=== PATIENT | male | born 1965 | race Caucasian/White ===

== ENCOUNTER 2023-03-14 20:28 | Inpatient (IN) | payer BC, SELFPAY ==
[2023-03-14 20:36] VITALS: BP 156/84; PULSE 74; RESP 18; TEMP 36.9; O2SAT 95; BMI 36.5
--- NOTE | 2023-03-14 20:36 | XRR_ITS ---
PROCEDURE INFORMATION: Exam: XR Chest Exam date and time: 03/14/2023 8:43 PM Age: 57 years old Clinical indication: Pain; Chest pressure; Additional info: Chest pain TECHNIQUE: Imaging protocol: Radiologic exam of the chest. Views: 1 view. COMPARISON: No relevant prior studies available. FINDINGS: Tubes, catheters and devices: Overlying monitor leads. Lungs: Mild left basilar atelectasis versus scarring. No consolidation. Pleural spaces: Unremarkable. No pleural effusion. No pneumothorax. Heart/Mediastinum: Unremarkable. No cardiomegaly. Bones/joints: Visualized osseous structures show no acute abnormality. XR/XR chest 1V portable [id number] IMPRESSION: 1. Mild left basilar atelectasis versus scarring. 2. No acute findings.
--- NOTE | 2023-03-14 20:37 | ECG_ITS ---
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 Measurements Intervals [place] Rate: 69 P: 60 AK: 151 QRS: 9 QRSD: 95 T: 68 QT: 390 QTc: 419 Interpretive Statements SINUS RHYTHM NONSPECIFIC T-WAVE ABNORMALITY No previous ECG available for comparison Electronically Signed On 03-17-2023 8:34:55 CDT by Sampson Pedroza M.D. [email or web address].Official Limited Virtualpascagoula hospitalWireless Generationacmc [id number] f
[2023-03-14 20:57] VITALS: BP 173/86; PULSE 85; RESP 22; O2SAT 95
[2023-03-14 21:00] LABS: Basophils # 0.1 10^3/uL (0.0-0.1); Basophils % 0.4 %; Eosinophils # 0.1 10^3/uL (0.0-0.8); Hematocrit 50.6 % (42.0-52.0); Hemoglobin 16.6 g/dL (11.7-16.6); Lymphocytes # 2.4 10^3/uL (0.8-4.8); Lymphocytes % 17.7 %; Mean Corpuscular HGB Conc 32.8 g/dL (30.0-36.0); Mean Corpuscular Hemoglobin 28.1 pg (28.0-34.0); Mean Corpuscular Volume 85.8 fl (80-94); Monocytes # 0.9 10^3/uL (0.2-0.9); Monocytes % 6.5 %; Neutrophils # 9.89 10^3/uL (1.8-7.7); Neutrophils % 73.8 %; Nucleated Red Blood Cells % 0 %; Platelet Count 345 10^3/cmm (130-400); Red Cell Distribution Width 13.5 % (12.1-15.1); White Blood Count 13.4 10^3/uL (4.0-10.0)
[2023-03-14 21:12] VITALS: BP 144/98; PULSE 70; RESP 17; O2SAT 97
[2023-03-14 21:16] LABS: Lipase 20 U/L (13-60)
[2023-03-14 21:17] LABS: Troponin(5th) Baseline 8 ng/L (0-15)
[2023-03-14 21:19] LABS: Alanine Aminotransferase 89 U/L (0-41); Albumin Level 3.9 g/dL (3.5-5.2); Alkaline Phosphatase 113 U/L (40-130); Anion Gap 12.7 (5-19); Aspartate Amino Transferase 91 U/L (0-40); Blood Urea Nitrogen 7 mg/dL (6-20); Calcium 9.8 mg/dL (8.5-10.5); Carbon Dioxide 28 mmol/L (22-29); Chloride 103 mmol/L (98-107); Globulin 2.1 g/dL (1.3-4.6); Glucose 137 mg/dL (65-115); Osmolality Calculated 290 mOsm/kg (285-295); Potassium 3.7 mmol/L (3.5-5.1); Sodium 140 mmol/L (136-145)
--- NOTE | 2023-03-14 21:34 | CTR_ITS ---
PROCEDURE INFORMATION: Exam: CT Abdomen And Pelvis With Contrast Exam date and time: 03/14/2023 9:45 PM Age: 57 years old Clinical indication: Abdominal pain; Patient HX: Epigastric pain with nausea. Lft elevated. 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 ; Additional info: Abd pain, bloating, elevated lfts TECHNIQUE: Imaging protocol: Computed tomography of the abdomen and pelvis with contrast. Radiation optimization: All CT scans at this facility use at least one of these dose optimization techniques: automated exposure control; mA and/or kV adjustment per patient size (includes targeted exams where dose is matched to clinical indication); or iterative reconstruction. Contrast material: OMNI 350; Contrast volume: 100 ml; Contrast route: INTRAVENOUS (IV); REPORTING DATA: Count of CT and Cardiac NM exams in prior 12 months: This patient has received 0 known CTs and 0 known cardiac nuclear medicine studies in the 12 months prior to the current study. COMPARISON: CR (CHEST, ) 03/14/2023 8:43 PM RADIATION DOSE METRICS: Total DLP (mGy-cm): 981.53 FINDINGS: Lungs: No significant infiltrate or effusion within the lung bases with small adhesion left lung base. Liver: Suggestion of mild fatty liver. No focal abnormality. Gallbladder and bile ducts: Gallbladder distention or hydrops with small calcification along the posterolateral wall region suggesting small gallstones or wall calcification. No biliary ductal dilatation. Pancreas: Normal. No ductal dilation. Spleen: Normal. No splenomegaly. Adrenal glands: Normal. No mass. Kidneys and ureters: Normal. No hydronephrosis. Stomach and bowel: Unremarkable. No obstruction. No mucosal thickening. Hyperdensities within the dependent portion of the stomach attributed to antacid ingestion along with a small portion in the proximal duodenum. Mild gastric prominence or distention. Appendix: No evidence of appendicitis. Intraperitoneal space: Unremarkable. No free air. No significant fluid collection. Vasculature: Mild atherosclerotic vascular disease without aneurysmal dilatation of the abdominal aorta. Lymph nodes: Unremarkable. No enlarged lymph nodes. Urinary bladder: Unremarkable as visualized. Reproductive: Mild prostate enlargement with several calcifications. This can be associated with chronic prostatitis. Bones/joints: Mild spondylotic change lumbar spine. Soft tissues: Mild left inguinal hernia of fat. CT/CT abdomen pelvis w con* [id number] IMPRESSION: 1. Suggestion of gallbladder distention or hydrops with small gallstones versus wall calcification about the posterolateral aspect, likely small gallstones. Correlation with gallbladder ultrasound could be performed. No biliary ductal dilatation. 2. Fatty liver. 3. Mild gastric prominence or distention and consider gastric stasis. Hyperdensities of antacid medication noted within the stomach and proximal duodenum. 4. Mild prostate enlargement with several calcifications. This can be associated with chronic prostatitis. 5. Mild atherosclerotic vascular calcification without aneurysm of the abdominal aorta.
[2023-03-14] MEDS: iohexol 350 mg/mL 500 mL Btl (per mL) IV (21:48)
--- NOTE | 2023-03-14 21:56 | W.ED.CHESTPA ---
HPI - Chest Pain General: Chief Complaint: Chest Pain Stated Complaint: CP Time Seen by Provider: 03/14/23 20:35 History of Present Illness: To the ER with complaints of abdominal pain radiating up into his chest. And bloating. EMS gave the patient nitro Zofran and aspirin with some relief. Patient states this started yesterday for several hours but then went away and then started back again today several hours earlier but has not went away. However he has had some relief with the medicines from EMS. Patient states the pain is more abdominal in nature that radiates up into his chest and he appears and feels bloated just like he is wanting to expect bloated. Review of Systems General: Reports: 10 or more systems reviewed and unremarkable except in HPI and below PFSH ED PFSH: Medical History (Updated 03/25/23 @ 11:54 by James oDyle DO) Acute cholecystitis Panhypopituitarism Surgical History (Updated 03/15/23 @ 10:28 by Jonathon Cruz MD) No pertinent past surgical history Family History (Updated 03/15/23 @ 10:28 by Jonathon Cruz MD) Other No pertinent family history Social History (Updated 03/15/23 @ 10:28 by Jonathon Cruz MD) Smoking and tobacco status: never smoked Alcohol intake: never Substance/Drug Use: never Physical Exam Const: COMMON NORMALS: no acute distress, average body habitus, patient oriented x3, no limitations, alert and well nourished HENMT: COMMON NORMALS: normocephalic, atraumatic, hearing grossly normal bilaterally, external ears normal, Normal external nose present and moist oral mucous membranes HEAD & SCALP: normocephalic and atraumatic NOSE: Normal external nose present EXTERNAL EAR: Yes external ears normal Eye: COMMON NORMALS: Equal, round and reactive pupils present, EOMs intact bilaterally, conjunctivae normal and no scleral icterus CONJUNCTIVA: Yes conjunctivae normal PUPIL: Yes Equal, round and reactive pupils present Neck/C-Spine: COMMON NORMALS: full ROM, no lymphadenopathy, supple, no meningeal signs, no JVD and Thyroid normal THYROID: Thyroid normal Chest: COMMONS NORMALS: normal inspection of the chest and normal palpation of entire chest wall Resp: COMMON NORMALS: normal respiratory effort, No retractions, No use of accessory muscles and clear to auscultation bilaterally AUSCULTATION: clear to auscultation bilaterally Cardio: COMMON NORMALS: no JVD, regular rate, regular rhythm, S1 normal heart sound present, S2 normal heart sound present, No gallops present (Cardio), No clicks present (Cardio), No murmurs present (Cardio) and No rub (Cardio) RATE: regular rate RHYTHM: regular rhythm HEART SOUNDS: S1 normal heart sound present and S2 normal heart sound present GI: COMMON NORMALS: Soft to palpation, No hepatosplenomegaly present and no masses; negative for Normal to inspection, nondistended, normoactive bowel sounds present (Mildly distended abdomen with normal active bowel sounds.) and negative for non-tender (Mildly tender to touch worse on the left side than right.) PALPATION: Yes Soft to palpation and Yes No hepatosplenomegaly present : COMMON NORMALS: Yes no CVA tenderness BLADDER/KIDNEY EXAM: Yes no CVA tenderness Back/Pelvis: COMMON NORMALS: no CVA tenderness Neuro: COMMON NORMALS: patient oriented x3 SENSORIUM/ORIENTATION: Yes alert MENINGEAL SIGNS: Yes no meningeal signs Course Vital Signs: Vital signs: Vital Signs Temperature 98.5 F 03/16/23 11:04 Pulse Rate 74 03/16/23 11:04 Respiratory Rate 18 03/16/23 11:04 Blood Pressure 125/73 03/16/23 11:04 Pulse Oximetry 96 03/16/23 11:04 Oxygen Delivery Me thod Room Air 03/16/23 07:55 MDM - Chest Pain Medical Decision Making Been having chest pain/abdominal pain for last 4 to give himself some antiacids. With no relief. Patient called 911 and EMS arrived they gave him nitro Zofran and aspirin with some relief. Physical exam was performed lab work and imaging was obtained which suggested cholecystitis. Patient will be mated and surgery consulted. Differential Diagnosis Unlikely acute massive pulmonary embolism, acute respiratory failure, acute myocardial infarction, cardiac arrest or sudden cardiac Medical Records I reviewed the patient's medical records. Lab Data I reviewed the patient's lab results. 03/16/23 02:02 03/16/23 02:02 Radiology Impressions Chest X-Ray 03/14/23 20:36 IMPRESSION: 1. Mild left basilar atelectasis versus scarring. 2. No acute findings. Abdomen/Pelvis CT 03/14/23 21:34 IMPRESSION: 1. Suggestion of gallbladder distention or hydrops with small gallstones versus wall calcification about the posterolateral aspect, likely small gallstones. Correlation with gallbladder ultrasound could be performed. No biliary ductal dilatation. 2. Fatty liver. 3. Mild gastric prominence or distention and consider gastric stasis. Hyperdensities of antacid medication noted within the stomach and proximal duodenum. 4. Mild prostate enlargement with several calcifications. This can be associated with chronic prostatitis. 5. Mild atherosclerotic vascular calcification without aneurysm of the abdominal aorta. Abdomen Ultrasound 03/14/23 22:07 IMPRESSION: 1. Multiple stones and sludge in the gallbladder. Findings suspicious for cholecystitis. 2. Pancreas not visualized due to overlying bowel gas. 3. Mild fatty infiltration of the liver. Laboratory Results WBC 13.4 10^3/uL (4.0-10.0) H 03/14/23 20:49 RBC 5.90 10^6/uL (4.1-5.3) H 03/14/23 20:49 Hgb 16.6 g/dL (11.7-16.6) 03/14/23 20:49 Hct 50.6 % (42.0-52.0) 03/14/23 20:49 MCV 85.8 fl (80-94) 03/14/23 20:49 MCH 28.1 pg (28.0-34.0) 03/14/23 20:49 MCHC 32.8 g/dL (30.0-36.0) 03/14/23 20:49 RDW 13.5 % (12.1-15.1) 03/14/23 20:49 Plt Count 345 10^3/cmm (130-400) 03/14/23 20:49 MPV 9.0 fL (7.4-10.4) 03/14/23 20:49 Neut % (Auto) 73.8 % 03/14/23 20:49 Lymph % (Auto) 17.7 % 03/14/23 20:49 [place] % (Auto) 6.5 % 03/14/23 20:49 Eos % (Auto) 1.0 % 03/14/23 20:49 Baso % (Auto) 0.4 % 03/14/23 20:49 Neut # (Auto) 9.89 10^3/uL (1.8-7.7) H 03/14/23 20:49 Lymph # (Auto) 2.4 10^3/uL (0.8-4.8) 03/14/23 20:49 [place] # (Auto) 0.9 10^3/uL (0.2-0.9) 03/14/23 20:49 Eos # (Auto) 0.1 10^3/uL (0.0-0.8) 03/14/23 20:49 Baso # (Auto) 0.1 10^3/uL (0.0-0.1) 03/14/23 20:49 Nucleated RBC % (auto) 0 % 03/14/23 20:49 Nucleated RBCs # 0.0 /100WBC 03/14/23 20:49 Sodium 140 mmol/L (136-145) 03/14/23 20:49 Potassium 3.7 mmol/L (3.5-5.1) 03/14/23 20:49 Chloride 103 mmol/L (98-107) 03/14/23 20:49 Carbon Dioxide 28 mmol/L (22-29) 03/14/23 20:49 Anion Gap 12.7 (5-19) 03/14/23 20:49 BUN 7 mg/dL (6-20) 03/14/23 20:49 Creatinine 0.8 mg/dL (0.7-1.2) 03/14/23 20:49 GFR Calculation 100.0 mL/min (90-130) 03/14/23 20:49 Glucose 137 mg/dL (65-115) H 03/14/23 20:49 Calculated Osmolality 290 mOsm/kg (285-295) 03/14/23 20:49 Calcium 9.8 mg/dL (8.5-10.5) 03/14/23 20:49 Magnesium 2.0 mg/dL (1.7-2.3) 03/14/23 20:49 Total Bilirubin 2.0 mg/dL (0.15-1.2) H 03/14/23 20:49 AST 91 U/L (0-40) H 03/14/23 20:49 ALT 89 U/L (0-41) H 03/14/23 20:49 Alkaline Phosphatase 113 U/L (40-130) 03/14/23 20:49 Troponin T Baseline 8 ng/L (0-15) 03/14/23 20:49 Troponin T 120 Minute 10.26 ng/L (0-15) 03/14/23 22:42 Delta Troponin T 2.26 ABS# (0-10) 03/14/23 22:42 Total Protein 6.0 g/dL (6.6-8.7) L 03/14/23 20:49 Albumin 3.9 g/dL (3.5-5.2) 03/14/23 20:49 Globulin 2.1 g/dL (1.3-4.6) 03/14/23 20:49 Lipase 20 U/L (13-60) 03/14/23 20:49 EKG Data EKG 1: I personally reviewed and interpreted this EKG as follows: EKG interpretation date: 03/14/23 EKG interpretation time: 20:33 Prior EKG tracings: not available for review Interpretation: EKG shows normal sinus rhythm, ventricular rate 69 bpm, [place] interval 151, QRS duration 95, QTc 409, nonspecific T wave abnormality EKG 2: I personally reviewed and interpreted this EKG as follows: EKG interpretation date: 03/14/23 EKG interpretation time: 22:41 Prior EKG tracings: available for review Interpretation: EKG showed ventricular rate 68 bpm, AZ interval 153, QRS duration 91, QTc 400, normal sinus rhythm no ST-T wave changes Discharge Plan Discharge Patient Disposition: Admitted As Inpatient Admit Provider: Ilir Raphael Clinical Impression: Acute cholecystitis Condition: Stable Discharge Diet: Low Fat Discharge Activity: Resume usual activity Coding Level of Care Code 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
--- NOTE | 2023-03-14 22:07 | USR_ITS ---
PROCEDURE INFORMATION: Exam: US Abdomen, Limited; Right Upper Quadrant Exam date and time: 03/14/2023 10:40 PM Age: 57 years old Clinical indication: Abdominal pain; Epigastric; Additional info: Abd pain, n/v, distension, abnormal gb on CT elevated lfts TECHNIQUE: Imaging protocol: Real time ultrasound of the abdomen with image documentation. Limited exam focused on the right upper quadrant. COMPARISON: CT abdomen pelvis w con* [id number] 03/14/2023 9:45 PM FINDINGS: Liver: Mildly increased echotexture in the liver, consistent with mild fatty infiltration. Gallbladder: Moderate gallbladder wall thickening. Multiple stones and sludge in the gallbladder. Small amount of pericholecystic fluid. Biliary ducts: Normal. No stones. No dilation. Pancreas: The pancreas was not visualized due to overlying bowel gas. Right kidney: The visualized right kidney is unremarkable. Portal venous: Hepatopetal flow in the portal vein. Intraperitoneal space: No ascites. US/US abdomen limited [id number] IMPRESSION: 1. Multiple stones and sludge in the gallbladder. Findings suspicious for cholecystitis. 2. Pancreas not visualized due to overlying bowel gas. 3. Mild fatty infiltration of the liver.
--- NOTE | 2023-03-14 22:37 | ECG_ITS ---
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 Measurements Intervals [place] Rate: 68 P: 57 TN: 153 QRS: 8 QRSD: 91 T: 62 QT: 383 QTc: 409 Interpretive Statements SINUS RHYTHM Compared to ECG 03/14/2023 20:33:46 T-wave abnormality no longer present Electronically Signed On 03-17-2023 8:38:26 CDT by Sampson Pedroza M.D. [id number]
[2023-03-14 22:39] VITALS: BP 133/76; PULSE 75; RESP 22; O2SAT 95
[2023-03-14 23:02] LABS: Troponin 5 2HR 10.26 ng/L (0-15)
[2023-03-14 23:05] LABS: Troponin 5 2HR Delta 2.26 ABS# (0-10)
[2023-03-15] VITALS (8 sets, daily range): BP systolic 117–139; BP diastolic 60–78; PULSE 55–70; RESP 14–17; TEMP 36.4–36.9; O2SAT 94–96
[2023-03-15] MEDS: piperacillin-tazobactam 4.5 GM in sodium chloride 0.9% (plus) 50 ML IV (00:47)
[2023-03-15] MEDS: lactated ringers 1,000 ML 100 ML IV ×2 (02:04→13:00)
[2023-03-15] MEDS: ketorolac 30 mg/mL INJ 15 MG IVP ×4 (02:04→19:51)
--- NOTE | 2023-03-15 02:57 | ECG_ITS ---
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 Measurements Intervals [place] Rate: 61 P: 71 TX: 158 QRS: -20 QRSD: 86 T: 7 QT: 422 QTc: 425 Interpretive Statements SINUS RHYTHM WITH SINUS ARRHYTHMIA MINIMAL VOLTAGE CRITERIA FOR LVH, CONSIDER NORMAL VARIANT [MEETS CRITERIA IN ONE OF: R(aVL), S(V1), R(V5), R(V5/V6)+S(V1)] Compared to ECG 03/14/2023 22:41:47 No significant changes Electronically Signed On 03-17-2023 8:38:21 CDT by Sampson Pedroza M.D. [id number]
[2023-03-15 03:30] LABS: Basophils % 0.4 %; Eosinophils # 0.1 10^3/uL (0.0-0.8); Eosinophils % 1.1 %; Hematocrit 46.6 % (42.0-52.0); Hemoglobin 15.1 g/dL (11.7-16.6); Lymphocytes # 1.7 10^3/uL (0.8-4.8); Lymphocytes % 16.4 %; Mean Corpuscular HGB Conc 32.4 g/dL (30.0-36.0); Mean Corpuscular Hemoglobin 28.4 pg (28.0-34.0); Mean Corpuscular Volume 87.6 fl (80-94); Mean Platelet Volume 9.5 fL (7.4-10.4); Monocytes # 0.9 10^3/uL (0.2-0.9); Monocytes % 8.3 %; Neutrophils # 7.69 10^3/uL (1.8-7.7); Neutrophils % 73.1 %; Nucleated Red Blood Cells % 0 %; Platelet Count 312 10^3/cmm (130-400); Red Blood Count 5.32 10^6/uL (4.1-5.3); Red Cell Distribution Width 13.8 % (12.1-15.1); White Blood Count 10.5 10^3/uL (4.0-10.0)
[2023-03-15 03:45] LABS: Alanine Aminotransferase 113 U/L (0-41); Albumin Level 3.6 g/dL (3.5-5.2); Alkaline Phosphatase 112 U/L (40-130); Anion Gap 12.3 (5-19); Aspartate Amino Transferase 108 U/L (0-40); Blood Urea Nitrogen 7 mg/dL (6-20); Calcium 9.2 mg/dL (8.5-10.5); Carbon Dioxide 31 mmol/L (22-29); Chloride 99 mmol/L (98-107); Globulin 1.9 g/dL (1.3-4.6); Glomerular Filtration Rate 77.3 mL/min (90-130); Glucose 122 mg/dL (65-115); Osmolality Calculated 285 mOsm/kg (285-295); Potassium 4.3 mmol/L (3.5-5.1); Sodium 138 mmol/L (136-145); Total Bilirubin 2.5 mg/dL (0.15-1.2); Total Protein 5.5 g/dL (6.6-8.7)
[2023-03-15 03:55] LABS: Troponin 5 6HR 7.78 ng/L (0-15)
[2023-03-15 04:08] LABS: Troponin 5 6HR Delta -0.22 ng/L (0-12)
--- NOTE | 2023-03-15 08:32 | P.CONIM_ITS ---
Providers/Reason For Consult Consulting Physician/Specialty*: General surgery Reason for Consult*: Acute cholecystitis Attending Physician: Ilir Raphael MD History of Present Illness History of Present Illness Nikolay Tomlinson is a 57 year old male who presented to an emergency department complaining of upper abdomen and chest pain. Cardiac work-up was negative. CAT scan was done showing evidence of acute cholecystitis, characterized with gallbladder wall thickening gallbladder distention and pericholecystic fluid. No evidence of biliary duct dilation bold on ultrasound or CAT scan. I was consulted for possible need for cholecystectomy. Review of Systems Narrative: 10 point review of systems was done and is negative otherwise noted in HPI General: No constitutional symptoms Cardiovascular: Mild chest pain Respiratory: No respiratory symptoms GI: Right upper quadrant pain Medications/Allergies Home Medications Medication Instructions Recorded Confirmed Last Taken Type desmopressin 0.2 mg tablet (DDAVP) See Rx Instructions .Route .COMPLEX 03/15/23 03/15/23 Unknown History hydrocortisone 10 mg tablet See Rx Instructions .Route .COMPLEX 03/15/23 03/15/23 Unknown History levothyroxine 137 mcg tablet 137 mcg PO DAILY 03/15/23 03/15/23 Unknown History rosuvastatin 40 mg tablet 40 mg PO DAILY 03/15/23 03/15/23 Unknown History testosterone cypionate 200 mg/mL See Rx Instructions .Route .COMPLEX 03/15/23 03/15/23 Unknown History intramuscular oil Allergies Allergy/AdvReac Type Severity Reaction Status Date / Time No Known Allergies Allergy Verified 03/14/23 20:42 Current Medications Generic Name Dose Route Start Last Admin Trade Name Freq PRN Reason Stop Dose Admin Lactated Ringer's 1,000 mls @ 100 mls/hr 03/15/23 01:28 03/15/23 02:04 Lactated Ringers IV 100 mls/hr .Q10H NICOLETTE Administration Ketorolac Tromethamine 15 mg 03/15/23 01:28 03/15/23 07:54 Ketorolac 30 Mg/Ml Inj IVP 03/20/23 01:27 15 mg Q6H NICOLETTE Administration Vitals/I&O/Wt Last Vital Signs Temp 98.2 F 03/15/23 08:00 Pulse 59 L 03/15/23 08:00 Resp 14 03/15/23 08:00 BP 120/78 03/15/23 08:00 Pulse Ox 96 03/15/23 08:00 O2 Del Method Room Air 03/15/23 04:00 03/14/23 03/15/23 03/15/23 22:59 06:59 14:59 Intake Total 50 / 50 Balance 50 / 50 Weight last 48 hrs Weight 240 lb Physical Exam Narrative: General : Patient is well developed , no acute distress, oriented x3. No jaundice noted Head : Normal cephalic, a-traumatic. Nose : Mucous membranes are without erythema. Lungs : Equal chest rise bilaterally, no use of accessory muscles, trachea is midline. CV : Rate and rhythm are normal. Abdomen : Abdomen is soft, mild tenderness to palpation in the right upper quadrant, no Gandara sign. Data 03/15/23 02:49 03/15/23 02:49 A&P Assessment and plan (1) Acute cholecystitis: (2) Elevated bilirubin: (3) Steroid dependence: Plan This is a 57-year-old male who presented to our emergency department with symptoms concerning for acute cholecystitis which was verified by imaging. Initial LFTs were notable for an elevated bilirubin to 2.0, in addition white count was elevated to 13.4. Patient was accepted to my service admitted to the hospital and placed n.p.o., on antibiotics, pain medication and a new set of labs was ordered for this morning. White count had trended down from 13.4-10.5. I have seen and uptrend of the total bilirubin from 2-2.5 in addition AST and ALT have trended up to 108 and 113. This may indicate a complement of possible biliary duct obstruction. After extensive discussion with the patient I Explained that at this point it would be important to try and his bilirubin before deciding of any surgical intervention if there is an uptrend of the bilirubin he will likely require additional imaging with MRCP or likely an ERCP which we do not offer at our institution. 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 Patient will likely require stress dose of the hormones in case surgery is needed, I am more inclined to proceed with nonoperative management at this point and have patient follow-up with his primary celebrity chef entrepreneur media personality for perioperative optimization before proceeding with laparoscopic cholecystectomy. Patient has been informed that if we going this route he will need interval cholecystectomy in about 6 weeks. Patient agrees with the plan. I have also talked to Dr. Cruz with our hospitalist department to assist with the management of his hormonal therapy while the patient is in-house. I plan to advance diet as tolerated continue all other care as stated above. Consult Attestations Medical Necessity Statement: Patient will likely stay 2 to 3 days in the hospital for nonoperative management of acute cholecystitis Coding Level of Care Code 07329 Diagnoses Acute cholecystitis K81.0 Elevated bilirubin R17 Steroid dependence F19.20
[2023-03-15] MEDS: enoxaparin 40 mg/0.4 mL Syringe SUBCUT (08:46)
[2023-03-15] MEDS: hydrocortisone 10 mg Tablet 20 MG PO (08:47)
[2023-03-15] MEDS: levothyroxine 137 mcg Tablet PO (08:48)
[2023-03-15] MEDS: atorvastatin 40 mg Tablet 80 MG PO (08:48)
[2023-03-15] MEDS: piperacillin-tazobactam 3.375 GM in sodium chloride 0.9% (plus) 50 ML IV ×2 (08:48→18:10)
--- NOTE | 2023-03-15 08:50 | PM.DCS ---
Discharge Providers Date of Admission: 03/15/23 00:56 Date of Discharge: March 15, 2023 Attending Provider at Admission: Ilir Raphael MD Attending Provider at Discharge: Ilir Raphael MD Diagnoses at Discharge Discharge Diagnosis (1) Acute cholecystitis: Status: Acute (2) Elevated bilirubin: Status: Acute (3) Steroid dependence: Status: Acute Reason for Visit Reason for Visit: CP Discharge Data Studies Completed and Pending Completed Studies During Hospitalization Category Date Time Status CT abdomen pelvis w con* [id number] Stat Cat Scan 03/14/23 21:34 Completed XR chest 1V portable [id number] Stat Exams 03/14/23 20:36 Completed US abdomen limited [id number] Stat Ultrasound 03/14/23 22:07 Completed Pending at discharge Category Date Time Status CBC Auto Diff [Complete Blood Count w/Auto] Routine Lab 03/16/23 04:00 Ordered CMP [Comprehensive Metabolic Panel] Routine Lab 03/16/23 04:00 Ordered Cortisol Random Routine Lab 03/15/23 02:49 Received Free T4 Free Thyroxine Routine Lab 03/15/23 02:49 Received T3 Free Routine Lab 03/15/23 02:49 Received TSH [Thyroid Stimulating Hormone] Routine Lab 03/15/23 02:49 Received Radiology Impressions Chest X-Ray 03/14/23 20:36 IMPRESSION: 1. Mild left basilar atelectasis versus scarring. 2. No acute findings. Abdomen/Pelvis CT 03/14/23 21:34 IMPRESSION: 1. Suggestion of gallbladder distention or hydrops with small gallstones versus wall calcification about the posterolateral aspect, likely small gallstones. Correlation with gallbladder ultrasound could be performed. No biliary ductal dilatation. 2. Fatty liver. 3. Mild gastric prominence or distention and consider gastric stasis. Hyperdensities of antacid medication noted within the stomach and proximal duodenum. 4. Mild prostate enlargement with several calcifications. This can be associated with chronic prostatitis. 5. Mild atherosclerotic vascular calcification without aneurysm of the abdominal aorta. Abdomen Ultrasound 03/14/23 22:07 IMPRESSION: 1. Multiple stones and sludge in the gallbladder. Findings suspicious for cholecystitis. 2. Pancreas not visualized due to overlying bowel gas. 3. Mild fatty infiltration of the liver. Laboratory Results WBC 10.5 10^3/uL (4.0-10.0) H 03/15/23 02:49 RBC 5.32 10^6/uL (4.1-5.3) H 03/15/23 02:49 Hgb 15.1 g/dL (11.7-16.6) 03/15/23 02:49 Hct 46.6 % (42.0-52.0) 03/15/23 02:49 MCV 87.6 fl (80-94) 03/15/23 02:49 MCH 28.4 pg (28.0-34.0) 03/15/23 02:49 MCHC 32.4 g/dL (30.0-36.0) 03/15/23 02:49 RDW 13.8 % (12.1-15.1) 03/15/23 02:49 Plt Count 312 10^3/cmm (130-400) 03/15/23 02:49 MPV 9.5 fL (7.4-10.4) 03/15/23 02:49 Neut % (Auto) 73.1 % 03/15/23 02:49 Lymph % (Auto) 16.4 % 03/15/23 02:49 [place] % (Auto) 8.3 % 03/15/23 02:49 Eos % (Auto) 1.1 % 03/15/23 02:49 Baso % (Auto) 0.4 % 03/15/23 02:49 Neut # (Auto) 7.69 10^3/uL (1.8-7.7) 03/15/23 02:49 Lymph # (Auto) 1.7 10^3/uL (0.8-4.8) 03/15/23 02:49 [place] # (Auto) 0.9 10^3/uL (0.2-0.9) 03/15/23 02:49 Eos # (Auto) 0.1 10^3/uL (0.0-0.8) 03/15/23 02:49 Baso # (Auto) 0.0 10^3/uL (0.0-0.1) 03/15/23 02:49 Nucleated RBC % (auto) 0 % 03/15/23 02:49 Nucleated RBCs # 0.0 /100WBC 03/15/23 02:49 Sodium 138 mmol/L (136-145) 03/15/23 02:49 Potassium 4.3 mmol/L (3.5-5.1) 03/15/23 02:49 Chloride 99 mmol/L (98-107) 03/15/23 02:49 Carbon Dioxide 31 mmol/L (22-29) H 03/15/23 02:49 Anion Gap 12.3 (5-19) 03/15/23 02:49 BUN 7 mg/dL (6-20) 03/15/23 02:49 Creatinine 1.0 mg/dL (0.7-1.2) 03/15/23 02:49 GFR Calculation 77.3 mL/min (90-130) L 03/15/23 02:49 Glucose 122 mg/dL (65-115) H 03/15/23 02:49 Calculated Osmolality 285 mOsm/kg (285-295) 03/15/23 02:49 Calcium 9.2 mg/dL (8.5-10.5) 03/15/23 02:49 Magnesium 2.0 mg/dL (1.7-2.3) 03/14/23 20:49 Total Bilirubin 2.5 mg/dL (0.15-1.2) H 03/15/23 02:49 AST 108 U/L (0-40) H 03/15/23 02:49 ALT 113 U/L (0-41) H 03/15/23 02:49 Alkaline Phosphatase 112 U/L (40-130) 03/15/23 02:49 Troponin T Baseline 8 ng/L (0-15) 03/14/23 20:49 Troponin T 120 Minute 10.26 ng/L (0-15) 03/14/23 22:42 Delta Troponin T 2.26 ABS# (0-10) 03/14/23 22:42 Troponin T Hi Sens 6Hr 7.78 ng/L (0-15) 03/15/23 02:49 Troponin T Hi Sens 6Hr Delta -0.22 ng/L (0-12) L 03/15/23 02:49 Total Protein 5.5 g/dL (6.6-8.7) L 03/15/23 02:49 Albumin 3.6 g/dL (3.5-5.2) 03/15/23 02:49 Globulin 1.9 g/dL (1.3-4.6) 03/15/23 02:49 Lipase 20 U/L (13-60) 03/14/23 20:49 Vitals Last Vital Signs Temp 98.2 F 03/15/23 08:00 Pulse 59 L 03/15/23 08:00 Resp 14 03/15/23 08:00 BP 120/78 03/15/23 08:00 Pulse Ox 96 03/15/23 08:00 O2 Del Method Room Air 03/15/23 04:00 Discharge Plan Discharge Patient Disposition: Home Condition: Stable Prescriptions: No Action levothyroxine 137 mcg tablet 137 mcg PO DAILY desmopressin [DDAVP] 0.2 mg tablet See Rx Instructions .ROUTE .COMPLEX Rx Instructions: 0.2 MG IN THE MORNING AND 0.2 MG AT NOON AND 0.2 MG IN THE EVENING hydrocortisone 10 mg tablet See Rx Instructions .ROUTE .COMPLEX Rx Instructions: 20 MG IN THE MORNING AND 10 MG IN THE EVENING testosterone cypionate 200 mg/mL oil See Rx Instructions .ROUTE .COMPLEX Rx Instructions: 200 MG IM EVERY 2 WEEKS rosuvastatin 40 mg tablet 40 mg PO DAILY Patient Instructions: Opioid Safety Coding Level of Care Code Acute Code for Chg Fwd Diagnoses Acute cholecystitis K81.0 Elevated bilirubin R17 Steroid dependence F19.20
[2023-03-15 09:17] LABS: Cortisol Random 6.82 ug/dL (2.47-19.5)
[2023-03-15 09:22] LABS: Free T4 Free Thyroxine 1.81 ng/dL (0.82-1.77); T3 Free 3.5 PG/ML (2.0-4.4); Thyroid Stimulating Hormone 0.01 uIU/mL (0.27-4.20)
--- NOTE | 2023-03-15 10:18 | P.CONIM_ITS ---
Providers/Reason For Consult Consulting Physician/Specialty*: generaly surgery Reason for Consult*: panhyopituatarism Attending Physician: Ilir Raphael MD History of Present Illness History of Present Illness Nikolay Tomlinson is a 57 year old male with a past medical history of pituitary adenoma, status post radiation therapy in , has followed up with surgery and endocrinology, his last MRI a year ago showed no significant change, he remains on hormonal replacement therapy, recently his hydrocortisone dose was increased to 20 mg in the morning, 10 mg in the in the evening, overall he has been doing well, 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, 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 [employer], he is from [place], he tells me that he was starting to experience right upper quadrant pain feeling nauseous lightheadedness for the last 24 hours, he was admitted to [facility] for concerns for acute cholecystitis, elevated LFTs, currently he is abdominal pain-free currently on clear liquids Review of Systems Const: Denies: fever(s) Card: Denies: chest pain Resp: Denies: dyspnea GI: Reports: abdominal pain and nausea : Denies: flank pain Musc: Denies: neck pain or back pain Skin/Breast: Denies: rash Neuro: Denies: headache(s) Psych: Denies: anxiety Endo: Denies: polyuria Medications/Allergies Home Medications Medication Instructions Recorded Confirmed Last Taken Type desmopressin 0.2 mg tablet (DDAVP) See Rx Instructions .Route .COMPLEX 03/15/23 03/15/23 Unknown History hydrocortisone 10 mg tablet See Rx Instructions .Route .COMPLEX 03/15/23 03/15/23 Unknown History levothyroxine 137 mcg tablet 137 mcg PO DAILY 03/15/23 03/15/23 Unknown History rosuvastatin 40 mg tablet 40 mg PO DAILY 03/15/23 03/15/23 Unknown History testosterone cypionate 200 mg/mL See Rx Instructions .Route .COMPLEX 03/15/23 03/15/23 Unknown History intramuscular oil Allergies Allergy/AdvReac Type Severity Reaction Status Date / Time No Known Allergies Allergy Verified 03/14/23 20:42 Current Medications Generic Name Dose Route Start Last Admin Trade Name Freq PRN Reason Stop Dose Admin Atorvastatin Calcium 80 mg 03/15/23 09:00 03/15/23 08:48 Atorvastatin 40 Mg Tablet PO 80 mg DAILY NICOLETTE Administration Desmopressin Acetate 0.2 mg 03/15/23 08:45 03/15/23 08:48 Desmopressin 0.2 Mg Tablet PO 0.2 mg TID@0800,1200,1800 NICOLETTE Administration Enoxaparin Sodium 40 mg 03/15/23 09:00 03/15/23 08:46 Enoxaparin 40 Mg/0.4 Ml Syringe SUBCUT 40 mg DAILY NICOLETTE Administration Hydrocortisone 20 mg 03/15/23 08:45 03/15/23 08:47 Hydrocortisone 10 Mg Tablet PO 20 mg 0800 NICOLETTE Administration Lactated Ringer's 1,000 mls @ 100 mls/hr 03/15/23 01:28 03/15/23 02:04 Lactated Ringers IV 100 mls/hr .Q10H NICOLETTE Administration Piperacillin Sod/Tazobactam 50 mls @ 12.5 mls/hr 03/15/23 09:00 03/15/23 08:48 Sod 3.375 gm/ Sodium Chloride IV 12.5 mls/hr Q8H NICOLETTE Administration Protocol Ketorolac Tromethamine 15 mg 03/15/23 01:28 03/15/23 07:54 Ketorolac 30 Mg/Ml Inj IVP 03/20/23 01:27 15 mg Q6H NICOLETTE Administration Levothyroxine Sodium 137 mcg 03/15/23 09:00 03/15/23 08:48 Levothyroxine 137 Mcg Tablet PO 137 mcg DAILY NICOLETTE Administration PFSH Acute PFSH: Medical History (Updated 03/15/23 @ 10:21 by Jonathon Cruz MD) Panhypopituitarism Surgical History (Updated 03/15/23 @ 10:28 by Jonathon Cruz MD) No pertinent past surgical history Family History (Updated 03/15/23 @ 10:28 by Jonathon Cruz MD) Other No pertinent family history Social History (Updated 03/15/23 @ 10:28 by Jonathon Cruz MD) Smoking and tobacco status: never smoked Alcohol intake: never Substance/Drug Use: never Vitals/I&O/Wt Last Vital Signs Temp 98.2 F 03/15/23 08:00 Pulse 59 L 03/15/23 08:00 Resp 14 03/15/23 08:00 BP 120/78 03/15/23 08:00 Pulse Ox 96 03/15/23 08:00 O2 Del Method Room Air 03/15/23 04:00 03/14/23 03/15/23 03/15/23 22:59 06:59 14:59 Intake Total 50 / 50 Balance 50 / 50 Weight last 48 hrs Weight 108.862 kg Physical Exam Const: COMMON NORMALS: no acute distress and patient oriented x3 HENMT: COMMON NORMALS: normocephalic HEAD & SCALP: normocephalic Resp: COMMON NORMALS: normal respiratory effort, No retractions, No use of accessory muscles and clear to auscultation bilaterally AUSCULTATION: clear to auscultation bilaterally Cardio: COMMON NORMALS: regular rate, regular rhythm, S1 normal heart sound present and S2 normal heart sound present RATE: regular rate RHYTHM: regular rhythm HEART SOUNDS: S1 normal heart sound present and S2 normal heart sound present GI: OTHER: Abdomen soft, distended, good bowel sounds in all quadrants, no significant tenderness, no guarding, no rebound, no rigidity Extremity: COMMON NORMALS: no pedal edema Neuro: COMMON NORMALS: patient oriented x3 Psych: COMMON NORMALS: mental status grossly normal Data 03/15/23 02:49 03/15/23 02:49 A&P Assessment and plan (1) Panhypopituitarism: (2) Acute cholecystitis: (3) Elevated bilirubin: (4) Steroid dependence: Plan - We will check TSH, cortisol levels -His dose of testosterone is due tomorrow, will give him his dose tomorrow -Denies a cardiovascular history, no chest pain complaints, no shortness of breath, no significant troponin elevation, EKG no acute ST-T wave changes -No history of smoking, history of left-sided pneumonia and left lung scarring, no shortness of breath complaints, chest x-ray shows left lung atelectasis ve rsus scarring -No complaints of DVTs or PEs or hypercoagulable events, no calf pain, no calf swelling no hemoptysis -currently is being medically managed -will need stress dosed steroid before surgery -will monitor blood pressure, electrolytes Diagnoses Panhypopituitarism E23.0 Acute cholecystitis K81.0 Elevated bilirubin R17 Steroid dependence 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
[2023-03-15] MEDS: hydrocortisone 10 mg Tablet PO (18:09)
[2023-03-16] MEDS: lactated ringers 1,000 ML 100 ML IV (01:05)
[2023-03-16] MEDS: ketorolac 30 mg/mL INJ 15 MG IVP ×2 (01:05→06:30)
[2023-03-16] MEDS: piperacillin-tazobactam 3.375 GM in sodium chloride 0.9% (plus) 50 ML IV ×2 (01:06→09:04)
[2023-03-16 03:32] LABS: Basophils % 0.3 %; Eosinophils # 0.2 10^3/uL (0.0-0.8); Eosinophils % 2.3 %; Hematocrit 42.8 % (42.0-52.0); Hemoglobin 13.9 g/dL (11.7-16.6); Lymphocytes # 2.3 10^3/uL (0.8-4.8); Lymphocytes % 25.5 %; Mean Corpuscular HGB Conc 32.5 g/dL (30.0-36.0); Mean Corpuscular Hemoglobin 28.5 pg (28.0-34.0); Mean Corpuscular Volume 87.7 fl (80-94); Mean Platelet Volume 9.5 fL (7.4-10.4); Monocytes # 0.7 10^3/uL (0.2-0.9); Monocytes % 7.8 %; Neutrophils # 5.75 10^3/uL (1.8-7.7); Neutrophils % 63.7 %; Nucleated Red Blood Cells % 0 %; Platelet Count 269 10^3/cmm (130-400); Red Blood Count 4.88 10^6/uL (4.1-5.3); Red Cell Distribution Width 13.8 % (12.1-15.1); White Blood Count 9.1 10^3/uL (4.0-10.0)
[2023-03-16 04:00] VITALS: BP 129/76; PULSE 60; RESP 16; TEMP 36.7; O2SAT 96
[2023-03-16 04:06] LABS: Alanine Aminotransferase 128 U/L (0-41); Albumin Level 3.4 g/dL (3.5-5.2); Alkaline Phosphatase 116 U/L (40-130); Anion Gap 13.3 (5-19); Aspartate Amino Transferase 86 U/L (0-40); Blood Urea Nitrogen 8 mg/dL (6-20); Calcium 8.3 mg/dL (8.5-10.5); Carbon Dioxide 29 mmol/L (22-29); Chloride 102 mmol/L (98-107); Globulin 1.6 g/dL (1.3-4.6); Glomerular Filtration Rate 87.3 mL/min (90-130); Glucose 87 mg/dL (65-115); Osmolality Calculated 288 mOsm/kg (285-295); Potassium 4.3 mmol/L (3.5-5.1); Sodium 140 mmol/L (136-145); Total Bilirubin 2.1 mg/dL (0.15-1.2)
[2023-03-16] MEDS: hydrocortisone 10 mg Tablet 20 MG PO (07:13)
[2023-03-16 07:55] VITALS: BP 125/73; PULSE 74; RESP 18; TEMP 36.9; O2SAT 96
--- NOTE | 2023-03-16 08:37 | P.DS_ITS ---
Discharge Providers Date of Admission: 03/15/23 00:56 Date of Discharge: March 16, 2023 Attending Provider at Admission: Ilir Raphael MD Attending Provider at Discharge: Ilir Raphael MD Consults: Internal medicine Diagnoses at Discharge Discharge Diagnosis (1) Panhypopituitarism: Status: Acute (2) Acute cholecystitis: Status: Acute (3) Elevated bilirubin: Status: Acute (4) Steroid dependence: Status: Acute Reason for Visit Reason for Visit: CP Brief History: 57-year-old male who presented to our hospital with about 48 hours of right upper quadrant abdominal pain, nausea and vomiting. Patient was diagnosed of acute cholecystitis and admitted to the [facility] for possible laparoscopic cholecystectomy. Repeat laboratory work-up showed an uptrend of the total bilirubin, in addition patient was noted to be hormone dependent due to previous pituitary radiation. Therefore we decided to proceed with nonoperative management of acute cholecystitis with IV antibiotics and monitoring of lab work-up. Hospital Course Hospital Course 57-year-old male with history of hormone dependency due to pituitary radiation. Who presented with acute cholecystitis, and an uptrending bilirubin. After initial evaluation we determined that the safest course of action at this point is to pursue nonoperative management and trend the bilirubin due to risk of choledocholithiasis. On hospital day 1 patient was free of pain, tolerating diet, bilirubin initially trended up to 2.5 and then subsequently trended down to 2.1. White count has also trended down to normal levels. I had an extensive discussion with the patient regarding the risk and benefits of the operation, I have explained that due to his hormone dependency, it would be ideal to have an endocrinology evaluation prior to scheduling any procedure, as he most likely will require stress dose of his medications. Patient currentlly resides in [place] where his pain management nurse is. We have agree for patient to return to [place], schedule a follow-up appointment with his pain management nurse and follow-up with general surgery for a delayed cholecystectomy at the 6-week alicia, I have explained also all the warning signs and the need for return to the hospital and earlier cholecystectomy if symptoms recur. We counseled the patient on following a low-fat diet. He will also be taking 1 more week of antibiotics as outpatient. Physical Exam Narrative: General : Patient is well developed , no acute distress, oriented x3 Head : Normal cephalic, a-traumatic. Nose : Mucous membranes are without erythema. Lungs : Equal chest rise bilaterally, no use of accessory muscles, trachea is midline. CV : Rate and rhythm are normal. Abdomen : Soft, ND, NT, no g/r/m, no Gandara sign present Extremities : No edema. Upper extremities are normal bilaterally. Back : non-tender to palpation, no CVA tenderness., Discharge Data Studies Completed and Pending Completed Studies During Hospitalization Category Date Time Status CT abdomen pelvis w con* [id number] Stat Cat Scan 03/14/23 21:34 Completed XR chest 1V portable [id number] Stat Exams 03/14/23 20:36 Completed US abdomen limited [id number] Stat Ultrasound 03/14/23 22:07 Completed Radiology Impressions Chest X-Ray 03/14/23 20:36 IMPRESSION: 1. Mild left basilar atelectasis versus scarring. 2. No acute findings. Abdomen/Pelvis CT 03/14/23 21:34 IMPRESSION: 1. Suggestion of gallbladder distention or hydrops with small gallstones versus wall calcification about the posterolateral aspect, likely small gallstones. Correlation with gallbladder ultrasound could be performed. No biliary ductal dilatation. 2. Fatty liver. 3. Mild gastric prominence or distention and consider gastric stasis. Hyperdensities of antacid medication noted within the stomach and proximal duodenum. 4. Mild prostate enlargement with several calcifications. This can be associated with chronic prostatitis. 5. Mild atherosclerotic vascular calcification without aneurysm of the abdominal aorta. Abdomen Ultrasound 03/14/23 22:07 IMPRESSION: 1. Multiple stones and sludge in the gallbladder. Findings suspicious for cholecystitis. 2. Pancreas not visualized due to overlying bowel gas. 3. Mild fatty infiltration of the liver. Laboratory Results WBC 9.1 10^3/uL (4.0-10.0) 03/16/23 02:02 RBC 4.88 10^6/uL (4.1-5.3) 03/16/23 02:02 Hgb 13.9 g/dL (11.7-16.6) 03/16/23 02:02 Hct 42.8 % (42.0-52.0) 03/16/23 02:02 MCV 87.7 fl (80-94) 03/16/23 02:02 MCH 28.5 pg (28.0-34.0) 03/16/23 02:02 MCHC 32.5 g/dL (30.0-36.0) 03/16/23 02:02 RDW 13.8 % (12.1-15.1) 03/16/23 02:02 Plt Count 269 10^3/cmm (130-400) 03/16/23 02:02 MPV 9.5 fL (7.4-10.4) 03/16/23 02:02 Neut % (Auto) 63.7 % 03/16/23 02:02 Lymph % (Auto) 25.5 % 03/16/23 02:02 [place] % (Auto) 7.8 % 03/16/23 02:02 Eos % (Auto) 2.3 % 03/16/23 02:02 Baso % (Auto) 0.3 % 03/16/23 02:02 Neut # (Auto) 5.75 10^3/uL (1.8-7.7) 03/16/23 02:02 Lymph # (Auto) 2.3 10^3/uL (0.8-4.8) 03/16/23 02:02 [place] # (Auto) 0.7 10^3/uL (0.2-0.9) 03/16/23 02:02 Eos # (Auto) 0.2 10^3/uL (0.0-0.8) 03/16/23 02:02 Baso # (Auto) 0.0 10^3/uL (0.0-0.1) 03/16/23 02:02 Nucleated RBC % (auto) 0 % 03/16/23 02:02 Nucleated RBCs # 0.0 /100WBC 03/16/23 02:02 Sodium 140 mmol/L (136-145) 03/16/23 02:02 Potassium 4.3 mmol/L (3.5-5.1) 03/16/23 02:02 Chloride 102 mmol/L (98-107) 03/16/23 02:02 Carbon Dioxide 29 mmol/L (22-29) 03/16/23 02:02 Anion Gap 13.3 (5-19) 03/16/23 02:02 BUN 8 mg/dL (6-20) 03/16/23 02:02 Creatinine 0.9 mg/dL (0.7-1.2) 03/16/23 02:02 GFR Calculation 87.3 mL/min (90-130) L 03/16/23 02:02 Glucose 87 mg/dL (65-115) 03/16/23 02:02 Calculated Osmolality 288 mOsm/kg (285-295) 03/16/23 02:02 Calcium 8.3 mg/dL (8.5-10.5) L 03/16/23 02:02 Magnesium 2.0 mg/dL (1.7-2.3) 03/14/23 20:49 Total Bilirubin 2.1 mg/dL (0.15-1.2) H 03/16/23 02:02 AST 86 U/L (0-40) H 03/16/23 02:02 ALT 128 U/L (0-41) H 03/16/23 02:02 Alkaline Phosphatase 116 U/L (40-130) 03/16/23 02:02 Troponin T Baseline 8 ng/L (0-15) 03/14/23 20:49 Troponin T 120 Minute 10.26 ng/L (0-15) 03/14/23 22:42 Delta Troponin T 2.26 ABS# (0-10) 03/14/23 22:42 Troponin T Hi Sens 6Hr 7.78 ng/L (0-15) 03/15/23 02:49 Troponin T Hi Sens 6Hr Delta -0.22 ng/L (0-12) L 03/15/23 02:49 Total Protein 5.0 g/dL (6.6-8.7) L 03/16/23 02:02 Albumin 3.4 g/dL (3.5-5.2) L 03/16/23 02:02 Globulin 1.6 g/dL (1.3-4.6) 03/16/23 02:02 Lipase 20 U/L (13-60) 03/14/23 20:49 TSH 0.01 uIU/mL (0.27-4.20) L 03/15/23 02:49 Free T4 1.81 ng/dL (0.82-1.77) H 03/15/23 02:49 Free T3 3.5 PG/ML (2.0-4.4) 03/15/23 02:49 Random Cortisol 6.82 ug/dL (2.47-19.5) 03/15/23 02:49 Vitals Last Vital Signs Temp 98.5 F 03/16/23 07:55 Pulse 74 03/16/23 07:55 Resp 18 03/16/23 07:55 BP 125/73 03/16/23 07:55 Pulse Ox 96 03/16/23 07:55 O2 Del Method Room Air 03/16/23 07:55 Discharge Plan Discharge Patient Disposition: Home Condition: Stable Prescriptions: New amoxicillin-pot clavulanate [Augmentin] 500-125 mg tablet 1 tab PO Q8H Qty: 20 0RF meloxicam 7.5 mg tablet 7.5 mg PO DAILY Qty: 7 0RF Continued levothyroxine 137 mcg tablet 137 mcg PO DAILY desmopressin [DDAVP] 0.2 mg tablet See Rx Instructions .ROUTE .COMPLEX Rx Instructions: 0.2 MG IN THE MORNING AND 0.2 MG AT NOON AND 0.2 MG IN THE EVENING hydrocortisone 10 mg tablet See Rx Instructions .ROUTE .COMPLEX Rx Instructions: 20 MG IN THE MORNING AND 10 MG IN THE EVENING testosterone cypionate 200 mg/mL oil See Rx Instructions .ROUTE .COMPLEX Rx Instructions: 200 MG IM EVERY 2 WEEKS rosuvastatin 40 mg tablet 40 mg PO DAILY Discharge Orders: Discharge Order (Routine); Ordered 03/16/23 Ordered By: Ilir Raphael Discharge Diet: Low Fat Discharge Activity: Resume usual activity Patient Instructions: Opioid Safety Activity Restrictions/Additional Instructions: Please follow up with [facility] and General Surgery as soon as possible to schedule elective cholecystectomy. In case of increased abdominal pain, fever, nausea, vomit, yellowing of the skin please return to your nearest emergency department for evaluation. Plan of Treatment: Please continue antibiotics for additional 7 days as prescribed, you will require a Cholecystectomy (gallblader removal) 6 weeks after this initial episode, a visit to your pain management nurse will be necesary to plan stress doses of your medications prior to the operation. Please follow up with General Surgery at your earliest convenience. Discharge Attestations Time Spent in Discharge Care*: less than 30 min Quality Metrics Clinical Quality Measures [ No reported AMI, CVA or VTE this stay] Coding Level of Care Code Acute Code for Chg Fwd Diagnoses Panhypopituitarism E23.0 Acute cholecystitis K81.0 Elevated bilirubin R17 Steroid dependence F19.20
[2023-03-16] MEDS: levothyroxine 137 mcg Tablet PO (09:03)
[2023-03-16] MEDS: atorvastatin 40 mg Tablet 80 MG PO (09:03)
--- NOTE | 2023-03-16 10:21 | P.PN_ITS ---
Subjective Subjective: Patient was seen this morning, he is abdominal pain-free, no nausea, no vomiting, he is on antibiotic therapy plan is for him to be discharged home today, with a follow-up with dicer machine operator in [place], I have discussed with him stress dose steroids this certainly can be done as outpatient, or he can always given a dose as inpatient before his surgery, he is not sure which surgeon he wants to go to he is in a research when he goes back to [place] I have discussed with him discussing with his dicer machine operator, he can continue his doses of levothyroxine, continue doses of hydrocortisone as there is no plans on surgery currently, see endocrinology as soon as he gets back to [place], advised him that if he has any recurrent abdominal pain, nausea vomiting go to the emergency room take antibiotics as prescribed avoid fatty meals, avoid fatty foods, he voiced understanding, all questions answered Vitals/I&O/Wt Last Vital Signs Temp 98.5 F 03/16/23 07:55 Pulse 74 03/16/23 07:55 Resp 18 03/16/23 07:55 BP 125/73 03/16/23 07:55 Pulse Ox 96 03/16/23 07:55 O2 Del Method Room Air 03/16/23 07:55 03/15/23 03/16/23 03/16/23 22:59 06:59 14:59 Intake Total 501 / 2351.000 536.667 / 2887.667 240 / 240 Balance 501 / 2351.000 536.667 / 2887.667 240 / 240 Weight last 48 hrs Weight 108.862 kg Physical Exam Const: COMMON NORMALS: no acute distress and patient oriented x3 Resp: COMMON NORMALS: normal respiratory effort, No retractions, No use of accessory muscles and clear to auscultation bilaterally AUSCULTATION: clear to auscultation bilaterally Cardio: COMMON NORMALS: regular rate, regular rhythm, S1 normal heart sound present and S2 normal heart sound present RATE: regular rate RHYTHM: regular rhythm HEART SOUNDS: S1 normal heart sound present and S2 normal heart sound present GI: COMMON NORMALS: Normal to inspection, nondistended, normoactive bowel sounds present and non-tender Extremity: COMMON NORMALS: no pedal edema Neuro: COMMON NORMALS: patient oriented x3 Psych: COMMON NORMALS: mental status grossly normal Data 03/16/23 02:02 03/16/23 02:02 A&P Assessment and plan (1) Panhypopituitarism: (2) Acute cholecystitis: (3) Elevated bilirubin: (4) Steroid dependence: Plan Medically managed, follow-up with endocrinology as outpatient discharged on steroids follow-up with endocrinology Attestations Medical Necessity Statement*: Patient will be discharged today Diagnoses Panhypopituitarism E23.0 Acute cholecystitis K81.0 Elevated bilirubin R17 Steroid dependence F19.20
[2023-03-16 11:04] VITALS: BP 125/73; PULSE 74; RESP 18; TEMP 36.9; O2SAT 96
== END 2023-03-16 11:00 | disposition home or self-care (01) | DRG 446 ==
LOC: ER 03-15 00:48 → MEDSURG 03-15 00:57
PROVIDERS: Emergency Medicine; Family Medicine; Admitting Provider Surgery; Emergency Provider Emergency Medicine; Visit Provider Surgery
DX: K81.0 Acute cholecystitis (principal); E89.3 Postprocedural hypopituitarism; W88.1XXS Exposure to radioactive isotopes, sequela; Z79.52 Long term (current) use of systemic steroids
CPT/HCPCS: 12345; 36415; 71045; 74177; 76705; 80053; 82533; 83690; 83735; 84439; 84443; 84481; 84484; 85025; 93005; 96365; 96372; 99255; 99285; J1071; J1650; J1885; J2543; J7120; J8499; Q9967